=== PATIENT | male | born 1940 | race Caucasian/White ===

== ENCOUNTER 2020-08-03 14:13 | Inpatient (IN) ==
[2020-08-03] MEDS ORDERED: 0.9 % Sodium Chloride 1,000 ML IVC ONE (15:01)
[2020-08-03] MEDS ORDERED: Ondansetron 4 MG/2 ML VIAL IVP ONE (15:01)
[2020-08-03] MEDS ORDERED: Azithromycin 500 MG in 0.9 % Sodium Chloride 250 ML IVPB ONE (15:05)
[2020-08-03] MEDS ORDERED: cefTRIAXone 1,000 MG in Water for inj. (sterile) 10 ML IVP ONE ×2 (15:05→18:17)
[2020-08-03 15:56] LABS: Basophils % 0.1 %; Eosinophils # 0.1 K/mcL (0.0-0.6); Hemoglobin 10.7 g/dL (12.9-16.9); Immature Granulocytes % 1.1 % (0-4); Lymphocytes # 0.7 K/mcL (0.6-4.6); Lymphocytes % 5.7 %; Mean Corpuscular HGB Conc 33.4 g/dL (31.6-35.5); Mean Corpuscular Hemoglobin 30.2 pg (28.0-33.3); Mean Corpuscular Volume 90.4 fL (83.0-100.0); Mean Platelet Volume 10.6 fL (9.4-12.4); Monocytes # 0.5 K/mcL (0.0-1.3); Monocytes % 4.5 %; Platelet Count 326 K/mcL (140-400); Red Blood Count 3.54 M/mcL (4.19-5.50); Red Cell Distribution Width 12.4 % (11.5-14.5); Segmented Neutrophils % 87.6 %; White Blood Count 11.4 K/mcL (4.3-11.1)
[2020-08-03 16:17] LABS: D-Dimer 3312 ng/mLFEU (0-500); Fibrinogen > 1000 mg/dL (169-393)
[2020-08-03 16:19] LABS: Alanine Aminotransferase 102 Units/L (7-52); Albumin 2.6 g/dL (3.5-5.7); Albumin/Globulin Ratio 0.6 (1.1-2.2); Alkaline Phosphatase 59 Units/L (34-104); Aspartate Amino Transferase 128 Units/L (13-39); BUN/Creatinine Ratio 22 (6-26); Bilirubin,Total 0.7 mg/dL (0.3-1.0); Blood Urea Nitrogen 36 mg/dL (8-23); Carbon Dioxide 22 mEq/L (23-29); Chloride 98 mEq/L (98-107); Globulin 4.1 g/dL (2.4-3.5); Glucose 108 mg/dL (70-105); Osmolality,Calculated 281 (280-300); Potassium 4.1 mEq/L (3.5-5.1); Sodium 131 mEq/L (136-145); Total Protein 6.7 g/dL (6.4-8.9); eGFR For African Americans 48 (> 60); eGFR For Non-African Americans 40 (> 60)
[2020-08-03] MEDS ORDERED: Isovue-370 500 ML BOTTLE IVP ONE (16:19)
[2020-08-03 16:29] LABS: Troponin I 0.04 ng/mL (< 0.04)
[2020-08-03 16:39] LABS: Ferritin > 1500 ng/mL (20-250)
[2020-08-03] MEDS ORDERED: Dexamethasone 4 MG/ML VIAL IVP ONE (17:03)
[2020-08-03] MEDS ORDERED: Ondansetron ODT 4 MG TAB.RAPDIS SL PRN (18:14)
[2020-08-03] MEDS ORDERED: Acetaminophen 325 MG TABLET PO PRN (18:14)
[2020-08-03] MEDS: Furosemide 20 MG/2 ML VIAL IVP SCH (20:53)
[2020-08-03] MEDS: *HR* Heparin 5,000 UNIT/ML VIAL SQ SCH ×2 (20:54→23:49)
[2020-08-04] MEDS: *HR* Heparin 5,000 UNIT/ML VIAL SQ SCH ×3 (03:12→20:21)
[2020-08-04 03:19] LABS: Hematocrit 32.4 % (37.5-50.1); Hemoglobin 10.6 g/dL (12.9-16.9); Mean Corpuscular HGB Conc 32.7 g/dL (31.6-35.5); Mean Corpuscular Hemoglobin 29.9 pg (28.0-33.3); Mean Corpuscular Volume 91.5 fL (83.0-100.0); Mean Platelet Volume 10.6 fL (9.4-12.4); Platelet Count 325 K/mcL (140-400); Red Blood Count 3.54 M/mcL (4.19-5.50); Red Cell Distribution Width 12.5 % (11.5-14.5); White Blood Count 11.4 K/mcL (4.3-11.1)
[2020-08-04 03:37] LABS: Potassium 4.1 mEq/L (3.5-5.1)
[2020-08-04] MEDS: Aspirin Enteric Coated 81 MG Tablet PO SCH (10:23)
[2020-08-04] MEDS: Dexamethasone 4 MG/ML VIAL IVP SCH (10:23)
[2020-08-04] MEDS: Furosemide 20 MG/2 ML VIAL IVP SCH (10:24)
[2020-08-04] MEDS: cefTRIAXone 2,000 MG in Water for inj. (sterile) 20 ML IVP SCH (10:24)
[2020-08-04] MEDS: Azithromycin 500 MG in 0.9 % Sodium Chloride 250 ML IVPB SCH (10:25)
[2020-08-05 02:35] LABS: Basophils % 0.1 %; Hematocrit 31.7 % (37.5-50.1); Hemoglobin 10.4 g/dL (12.9-16.9); Immature Granulocytes % 0.9 % (0-4); Lymphocytes # 0.5 K/mcL (0.6-4.6); Lymphocytes % 4.6 %; Mean Corpuscular HGB Conc 32.8 g/dL (31.6-35.5); Mean Corpuscular Hemoglobin 29.9 pg (28.0-33.3); Mean Corpuscular Volume 91.1 fL (83.0-100.0); Monocytes # 0.3 K/mcL (0.0-1.3); Monocytes % 2.3 %; Platelet Count 368 K/mcL (140-400); Red Blood Count 3.48 M/mcL (4.19-5.50); Red Cell Distribution Width 12.6 % (11.5-14.5); Segmented Neutrophils % 92.1 %; White Blood Count 10.9 K/mcL (4.3-11.1)
[2020-08-05 02:52] LABS: Alanine Aminotransferase 171 Units/L (7-52); Albumin 2.5 g/dL (3.5-5.7); Albumin/Globulin Ratio 0.6 (1.1-2.2); Alkaline Phosphatase 67 Units/L (34-104); Aspartate Amino Transferase 234 Units/L (13-39); BUN/Creatinine Ratio 28 (6-26); Bilirubin,Total 0.5 mg/dL (0.3-1.0); Blood Urea Nitrogen 45 mg/dL (8-23); C-Reactive Protein > 300 mg/L (Less than 10); Calcium 8.5 mg/dL (8.6-10.3); Carbon Dioxide 23 mEq/L (23-29); Chloride 103 mEq/L (98-107); Globulin 4.1 g/dL (2.4-3.5); Glucose 138 mg/dL (70-105); Lactate Dehydrogenase 487 Units/L (140-271); Osmolality,Calculated 296 (280-300); Potassium 4.6 mEq/L (3.5-5.1); Sodium 136 mEq/L (136-145); Total Protein 6.6 g/dL (6.4-8.9); eGFR For African Americans 50 (> 60); eGFR For Non-African Americans 41 (> 60)
[2020-08-05 03:09] LABS: Ferritin > 1500 ng/mL (20-250)
[2020-08-05] MEDS: *HR* Heparin 5,000 UNIT/ML VIAL SQ SCH ×3 (06:37→21:04)
[2020-08-05] MEDS: Aspirin Enteric Coated 81 MG Tablet PO SCH (09:37)
[2020-08-05] MEDS: Dexamethasone 4 MG/ML VIAL IVP SCH (09:37)
[2020-08-05] MEDS: Furosemide 20 MG/2 ML VIAL IVP SCH (09:38)
[2020-08-05] MEDS: cefTRIAXone 2,000 MG in Water for inj. (sterile) 20 ML IVP SCH (09:38)
[2020-08-05] MEDS: Azithromycin 500 MG in 0.9 % Sodium Chloride 250 ML IVPB SCH (09:41)
[2020-08-06] MEDS: *HR* Heparin 5,000 UNIT/ML VIAL SQ SCH ×3 (04:43→21:40)
[2020-08-06 08:26] LABS: Albumin 2.8 g/dL (3.5-5.7); Albumin/Globulin Ratio 0.7 (1.1-2.2); Bilirubin,Total 0.4 mg/dL (0.3-1.0); Calcium 8.8 mg/dL (8.6-10.3); Globulin 4.2 g/dL (2.4-3.5); Potassium 4.6 mEq/L (3.5-5.1)
[2020-08-06] MEDS: Aspirin Enteric Coated 81 MG Tablet PO SCH (09:24)
[2020-08-06] MEDS: Dexamethasone 4 MG/ML VIAL IVP SCH (09:27)
[2020-08-06] MEDS: cefTRIAXone 2,000 MG in Water for inj. (sterile) 20 ML IVP SCH (09:30)
[2020-08-06] MEDS: Furosemide 20 MG/2 ML VIAL IVP SCH ×2 (09:30→21:40)
[2020-08-06] MEDS: Azithromycin 500 MG in 0.9 % Sodium Chloride 250 ML IVPB SCH (09:44)
[2020-08-06 12:09] LABS: Hematocrit 34.6 % (37.5-50.1); Hemoglobin 11.1 g/dL (12.9-16.9); Immature Granulocytes % 0.8 % (0-4); Lymphocytes % 4.2 %; Mean Corpuscular HGB Conc 32.1 g/dL (31.6-35.5); Mean Corpuscular Hemoglobin 29.8 pg (28.0-33.3); Mean Corpuscular Volume 92.8 fL (83.0-100.0); Mean Platelet Volume 10.9 fL (9.4-12.4); Platelet Count 496 K/mcL (140-400); Red Blood Count 3.73 M/mcL (4.19-5.50); Segmented Neutrophils % 89.9 %; White Blood Count 15.6 K/mcL (4.3-11.1)
[2020-08-06 12:10] LABS: Basophils % 0.1 %; Lymphocytes # 0.7 K/mcL (0.6-4.6); Monocytes # 0.8 K/mcL (0.0-1.3)
[2020-08-06] MEDS: QUEtiapine Fumarate 25 MG TABLET PO SCH (21:41)
[2020-08-07 05:47] LABS: Basophils % 0.1 %; Hemoglobin 10.4 g/dL (12.9-16.9); Lymphocytes # 0.6 K/mcL (0.6-4.6); Lymphocytes % 5.3 %; Mean Corpuscular HGB Conc 31.5 g/dL (31.6-35.5); Mean Corpuscular Hemoglobin 29.3 pg (28.0-33.3); Mean Platelet Volume 10.7 fL (9.4-12.4); Monocytes # 0.8 K/mcL (0.0-1.3); Monocytes % 6.6 %; Neutrophils # 9.9 K/mcL (1.6-8.9); Platelet Count 416 K/mcL (140-400); Red Blood Count 3.55 M/mcL (4.19-5.50); Red Cell Distribution Width 12.8 % (11.5-14.5); White Blood Count 11.3 K/mcL (4.3-11.1)
[2020-08-07 06:10] LABS: Alanine Aminotransferase 305 Units/L (7-52); Albumin 2.6 g/dL (3.5-5.7); Albumin/Globulin Ratio 0.7 (1.1-2.2); Alkaline Phosphatase 73 Units/L (34-104); Aspartate Amino Transferase 172 Units/L (13-39); BUN/Creatinine Ratio 37 (6-26); Bilirubin,Total 0.4 mg/dL (0.3-1.0); Blood Urea Nitrogen 60 mg/dL (8-23); Calcium 8.8 mg/dL (8.6-10.3); Carbon Dioxide 24 mEq/L (23-29); Chloride 107 mEq/L (98-107); Globulin 3.8 g/dL (2.4-3.5); Glucose 123 mg/dL (70-105); Lactate Dehydrogenase 275 Units/L (140-271); Osmolality,Calculated 304 (280-300); Sodium 138 mEq/L (136-145); Total Protein 6.4 g/dL (6.4-8.9); eGFR For African Americans 51 (> 60); eGFR For Non-African Americans 42 (> 60)
[2020-08-07] MEDS: *HR* Heparin 5,000 UNIT/ML VIAL SQ SCH (06:11)
[2020-08-07 06:28] LABS: Ferritin > 1500 ng/mL (20-250)
[2020-08-07] MEDS: cefTRIAXone 2,000 MG in Water for inj. (sterile) 20 ML IVP SCH (09:01)
[2020-08-07] MEDS: Dexamethasone 4 MG/ML VIAL IVP SCH (09:03)
[2020-08-07] MEDS: Furosemide 20 MG/2 ML VIAL IVP SCH ×2 (09:03→20:08)
[2020-08-07] MEDS: Aspirin Enteric Coated 81 MG Tablet PO SCH (09:04)
[2020-08-07] MEDS: Azithromycin 500 MG in 0.9 % Sodium Chloride 250 ML IVPB SCH (09:04)
[2020-08-07 10:15] LABS: C-Reactive Protein 215 mg/L (Less than 10)
[2020-08-07] MEDS: *HR* Enoxaparin 100 MG/ML SYRINGE SQ SCH (17:44)
[2020-08-07] MEDS: QUEtiapine Fumarate 25 MG TABLET PO SCH (20:09)
[2020-08-08] MEDS: *HR* Enoxaparin 100 MG/ML SYRINGE SQ SCH ×2 (05:33→16:40)
[2020-08-08 06:29] LABS: Basophils % 0.2 %; Eosinophils % 0.1 %; Hemoglobin 11.5 g/dL (12.9-16.9); Immature Granulocytes % 1.1 % (0-4); Lymphocytes # 0.9 K/mcL (0.6-4.6); Lymphocytes % 6.4 %; Mean Corpuscular HGB Conc 31.9 g/dL (31.6-35.5); Mean Corpuscular Hemoglobin 29.3 pg (28.0-33.3); Mean Corpuscular Volume 91.8 fL (83.0-100.0); Mean Platelet Volume 10.7 fL (9.4-12.4); Monocytes % 7.3 %; Neutrophils # 11.8 K/mcL (1.6-8.9); Platelet Count 474 K/mcL (140-400); Red Blood Count 3.92 M/mcL (4.19-5.50); Red Cell Distribution Width 12.9 % (11.5-14.5); Segmented Neutrophils % 84.9 %; White Blood Count 13.9 K/mcL (4.3-11.1)
[2020-08-08 06:37] LABS: Albumin 2.7 g/dL (3.5-5.7); Albumin/Globulin Ratio 0.7 (1.1-2.2); Bilirubin,Total 0.5 mg/dL (0.3-1.0); Calcium 8.8 mg/dL (8.6-10.3); Potassium 5.1 mEq/L (3.5-5.1); Total Protein 6.7 g/dL (6.4-8.9)
[2020-08-08] MEDS: Aspirin Enteric Coated 81 MG Tablet PO SCH (10:14)
[2020-08-08] MEDS: Dexamethasone 4 MG/ML VIAL IVP SCH (10:15)
[2020-08-08] MEDS: Furosemide 20 MG/2 ML VIAL IVP SCH ×2 (10:16→19:44)
[2020-08-08] MEDS: QUEtiapine Fumarate 25 MG TABLET PO SCH (19:43)
[2020-08-09] MEDS: *HR* Enoxaparin 100 MG/ML SYRINGE SQ SCH (05:40)
[2020-08-09 06:34] VITALS: BP 144/69
[2020-08-09 07:19] LABS: Basophils % 0.2 %; Eosinophils % 0.3 %; Hematocrit 35.7 % (37.5-50.1); Hemoglobin 11.8 g/dL (12.9-16.9); Immature Granulocytes % 1.4 % (0-4); Lymphocytes # 1.1 K/mcL (0.6-4.6); Lymphocytes % 8.2 %; Mean Corpuscular HGB Conc 33.1 g/dL (31.6-35.5); Mean Corpuscular Volume 90.8 fL (83.0-100.0); Mean Platelet Volume 10.4 fL (9.4-12.4); Monocytes # 0.8 K/mcL (0.0-1.3); Monocytes % 5.9 %; Neutrophils # 11.6 K/mcL (1.6-8.9); Platelet Count 443 K/mcL (140-400); Red Blood Count 3.93 M/mcL (4.19-5.50); Red Cell Distribution Width 12.7 % (11.5-14.5); White Blood Count 13.8 K/mcL (4.3-11.1)
[2020-08-09 07:50] LABS: Albumin 2.8 g/dL (3.5-5.7); Albumin/Globulin Ratio 0.7 (1.1-2.2); Bilirubin,Total 0.5 mg/dL (0.3-1.0); Calcium 8.9 mg/dL (8.6-10.3); Globulin 4.1 g/dL (2.4-3.5); Potassium 4.6 mEq/L (3.5-5.1); Total Protein 6.9 g/dL (6.4-8.9)
[2020-08-09] MEDS: Dexamethasone 4 MG/ML VIAL IVP SCH (08:07)
[2020-08-09] MEDS: Aspirin Enteric Coated 81 MG Tablet PO SCH (08:07)
[2020-08-09] MEDS: Furosemide 20 MG/2 ML VIAL IVP SCH (08:08)
== END 2020-08-09 14:34 | disposition home health service (06) | DRG 871 ==
LOC: 2NENU 14:13 → EMEROOARM 14:13 → 2NENU 19:51 → SUATTDRO 08-04 16:42 → 3BNU 08-07 19:15
PROVIDERS: ADMIT Internal Medicine; ATTEND Internal Medicine